=== PATIENT | female | born 1995 | race American Indian/Alaskan Native ===

== ENCOUNTER 2019-11-06 05:20 | Emergency (ER) | payer SELFPAY ==
[2019-11-06 05:32] VITALS: BP 145/88
[2019-11-06 05:50] LABS: Basophils % (Auto) 0.6 % (0.0-1.8); Eosinophils # (Auto) 0.1 K/mm3 (0.0-0.4); Eosinophils % (Auto) 1.3 % (0.0-4.3); Hematocrit 36.3 % (30.3-42.9); Hemoglobin 11.5 gm/dl (10.1-14.3); Lymphocytes # (Auto) 1.5 K/mm3 (1.2-5.4); Lymphocytes % (Auto) 26.7 % (13.4-35.0); Mean Corpuscular HGB Conc 32 % (30-34); Mean Corpuscular Volume 71 fl (79-97); Monocytes # (Auto) 0.2 K/mm3 (0.0-0.8); Monocytes % (Auto) 4.4 % (0.0-7.3); Platelet Count 327 K/mm3 (140-440); Red Blood Count 5.14 M/mm3 (3.65-5.03); Red Cell Distribution Width 15.4 % (13.2-15.2)
[2019-11-06] MEDS ORDERED: ACETAMINOPHEN 500 MG TAB PO ONE (05:50)
--- NOTE | 2019-11-06 05:53 | Emergency Department Report ---
<LAURAMARCELOEmelinaJOHNATHON - Last Filed: 11/06/19 06:54> ED Female HPI - General Chief complaint: Vaginal Bleeding Stated complaint: BLEEDING, 7 WEEKS Source: patient Mode of arrival: Ambulatory Limitations: No Limitations - History of Present Illness Initial comments: Patient is a A0 24-year-old white female who is approximately 7 weeks gestation and with no past medical history who presents to the ED with content of acute onset persistent suprapubic pain with vaginal bleeding for the last 2 hours. Patient also complains of urinary frequency and urgency. Patient states that she was asleep and woke up in paddle of blood with suprapubic pain. Patient denies nausea, vomiting, fever, chills, dysuria, low back pain, dizziness, headache, chest pain or shortness of breath or traumatic injury and heavy lifting. MD Complaint: vaginal bleeding, pelvic pain -: Sudden, hour(s) (2) Location: suprapubic, other (vaginal) Radiation: non-radiating Severity: moderate Severity scale (0 -10): 5 Quality: cramping, sharp Consistency: constant Improves with: none Worsens with: none Are you Now?: Yes (7 weeks gestation) Associated Symptoms: denies other symptoms, vaginal bleeding, abdominal pain (suprapubic), loss of appetite, hematuria. denies: vaginal discharge, nausea/vomiting, fever/chills, headaches, dysuria, rash, seizure, shortness of breath, syncope, weakness, other - Related Data Sexually active: Yes : 1 Para: 0 A: 0 Allergies Allergy/AdvReac Type Severity Reaction Status Date / Time No Known Allergies Allergy Unverified 11/06/19 05:32 ED Review of Systems Constitutional: denies: chills, fever Eyes: denies: eye pain, eye discharge, vision change ENT: denies: ear pain, throat pain Respiratory: denies: cough, shortness of breath, wheezing Cardiovascular: denies: chest pain, palpitations Endocrine: no symptoms reported Gastrointestinal: abdominal pain (suprapubic pain). denies: nausea, vomiting, diarrhea Genitourinary: urgency, frequency, abnormal menses (heavy vaginal bleeding). denies: dysuria, discharge Musculoskeletal: denies: back pain, joint swelling, arthralgia Skin: denies: rash, lesions Neurological: denies: headache, weakness, paresthesias Psychiatric: denies: anxiety, depression Hematological/Lymphatic: denies: easy bleeding, easy bruising ED Past Medical Hx - Past Medical History Previous Medical History?: No - Surgical History Past Surgical History?: No - Social History Smoking Status: Never Smoker Substance Use Type: None ED Physical Exam - General Limitations: No Limitations General appearance: alert, in no apparent distress - Head Head exam: Present: atraumatic, normocephalic, normal inspection - Eye Eye exam: Present: normal appearance, PERRL, EOMI Pupils: Present: normal accommodation - ENT ENT exam: Present: normal exam, normal orophraynx, mucous membranes moist, TM's normal bilaterally, normal external ear exam - Neck Neck exam: Present: normal inspection, full ROM. Absent: tenderness - Respiratory Respiratory exam: Present: normal lung sounds bilaterally. Absent: respiratory distress, wheezes, rales, chest wall tenderness, accessory muscle use, decreased breath sounds, prolonged expiratory - Cardiovascular Cardiovascular Exam: Present: regular rate, normal rhythm, normal heart sounds. Absent: systolic murmur, diastolic murmur, rubs, gallop - GI/Abdominal GI/Abdominal exam: Present: soft, tenderness (moderate suprapubic tenderness, no guarding or rebound), normal bowel sounds. Absent: guarding, rebound, rigid, hypoactive bowel sounds, organomegaly - Bi-manual exam: Present: other (pelvic exam deferred) - Extremities Exam Extremities exam: Present: normal inspection, full ROM, normal capillary refill - Back Exam Back exam: Present: normal inspection, full ROM. Absent: tenderness, muscle spasm, paraspinal tenderness, vertebral tenderness - Neurological Exam Neurological exam: Present: alert, oriented X3, CN II-XII intact, normal gait, reflexes normal - Psychiatric Psychiatric exam: Present: normal affect, normal mood - Skin Skin exam: Present: warm, dry, intact, normal color. Absent: rash ED Medical Decision Making - Lab Data Result diagrams: 11/06/19 05:34 11/06/19 05:57 - Medical Decision Making This is a A0 24-year-old female who is approximately 7 weeks gestation who presented to the ED with acute onset persistent suprapubic pain with heavy vaginal bleeding for 2 hours. In the ED, patient is alert and oriented 3 and is not in distress. Patient was treated for pain with Tylenol, and labs including urinalysis were drawn. Transvaginal ultrasound was also ordered. Lab test results show hCG Quant of 17.78 and large amount of blood in the urinalysis. The rest of the lab test results are nonactionable. The transvaginal ultrasound report is pending. Patient care was transferred to Mando Rylan Jones ANGELIQUE at shift change at 0700 hrs. Ms. Jones child reviewed all the imaging report and disposition the patient appropriately - Differential Diagnosis Threatened miscarriage; Ectopic ; Subchorionic hemorrhage, UTI ED Disposition Clinical Impression: Threatened miscarriage in early , Complex cyst of right ovary Disposition: DC-01 TO HOME OR SELFCARE Is pt being admited?: No Does the pt Need Aspirin: No Condition: Stable Instructions: Threatened Miscarriage (ED), Abdominal Pain in (ED) Additional Instructions: Maintain a complete pelvic rest, with no heavy lifting or sexual activity,you need a repeat hCG Quant in 2 days. Your hCG Quant today is 17.78. Please follow-up with a SAP DIRECTOR in the next 2 days. Please take the ultrasound report with you to the SAP DIRECTOR to discuss the complex cyst/mass and to have repeat of your hcg Quant. Return to the emergency room immediately for any new or worsening symptoms. Referrals: your, traffic inspector [Other] - 2-3 Days Time of Disposition: 06:28 Print Language: TURKMEN <RYLAN JONES - Last Filed: 11/06/19 08:14> ED Review of Systems ROS: Stated complaint: BLEEDING, 7 WEEKS Other details as noted in HPI ED Course Vital Signs 11/06/19 11/06/19 05:25 06:16 Temperature 98.4 F Pulse Rate 80 Respiratory 16 18 Rate Blood Pressure 145/88 O2 Sat by Pulse 100 Oximetry ED Medical Decision Making - Lab Data Result diagrams: 11/06/19 05:34 11/06/19 05:57 Lab Results 11/06/19 11/06/19 11/06/19 Range/Units 05:34 05:34 05:34 WBC 5.7 (4.5-11.0) K/mm3 RBC 5.14 H (3.65-5.03) M/mm3 Hgb 11.5 (10.1-14.3) gm/dl Hct 36.3 (30.3-42.9) % MCV 71 L (79-97) fl MCH 22 L (28-32) pg MCHC 32 (30-34) % RDW 15.4 H (13.2-15.2) % Plt Count 327 (140-440) K/mm3 Lymph % (Auto) 26.7 (13.4-35.0) % Bailey % (Auto) 4.4 (0.0-7.3) % Eos % (Auto) 1.3 (0.0-4.3) % Baso % (Auto) 0.6 (0.0-1.8) % Lymph # 1.5 (1.2-5.4) K/mm3 Bailey # 0.2 (0.0-0.8) K/mm3 Eos # 0.1 (0.0-0.4) K/mm3 Baso # 0.0 (0.0-0.1) K/mm3 Seg Neutrophils % 67.0 (40.0-70.0) % Seg Neutrophils # 3.8 (1.8-7.7) K/mm3 Sodium (137-145) mmol/L Potassium (3.6-5.0) mmol/L Chloride (98-107) mmol/L Carbon Dioxide (22-30) mmol/L Anion Gap mmol/L BUN (7-17) mg/dL Creatinine (0.7-1.2) mg/dL Estimated GFR ml/min BUN/Creatinine Ratio % Glucose (65-100) mg/dL Calcium (8.4-10.2) mg/dL Total Bilirubin (0.1-1.2) mg/dL AST (5-40) units/L ALT (7-56) units/L Alkaline Phosphatase (35-129) units/L Total Protein (6.3-8.2) g/dL Albumin (3.9-5) g/dL Albumin/Globulin Ratio % HCG, Quant 17.78 H (0-4) mIU/mL Urine Color (Yellow) Urine Turbidity (Clear) Urine pH (5.0-7.0) Ur Specific [place] (1.003-1.030) Urine Protein (Negative) mg/dL Urine Glucose (UA) (Negative) mg/dL Urine Ketones (Negative) mg/dL Urine Blood (Negative) Urine Nitrite (Negative) Urine Bilirubin (Negative) Urine Urobilinogen (<2.0) mg/dL Ur Leukocyte Esterase (Negative) Urine WBC (Auto) (0.0-6.0) /HPF Urine RBC (Auto) (0.0-6.0) /HPF U Epithel Cells (Auto) (0-13.0) /HPF Urine Mucus /HPF Blood Type O POSITIVE 11/06/19 11/06/19 Range/Units 05:57 Unknown WBC (4.5-11.0) K/mm3 RBC (3.65-5.03) M/mm3 Hgb (10.1-14.3) gm/dl Hct (30.3-42.9) % MCV (79-97) fl MCH (28-32) pg MCHC (30-34) % RDW (13.2-15.2) % Plt Count (140-440) K/mm3 Lymph % (Auto) (13.4-35.0) % Bailey % (Auto) (0.0-7.3) % Eos % (Auto) (0.0-4.3) % Baso % (Auto) (0.0-1.8) % Lymph # (1.2-5.4) K/mm3 Bailey # (0.0-0.8) K/mm3 Eos # (0.0-0.4) K/mm3 Baso # (0.0-0.1) K/mm3 Seg Neutrophils % (40.0-70.0) % Seg Neutrophils # (1.8-7.7) K/mm3 Sodium 138 (137-145) mmol/L Potassium 4.7 (3.6-5.0) mmol/L Chloride 105.6 (98-107) mmol/L Carbon Dioxide 20 L (22-30) mmol/L Anion Gap 17 mmol/L BUN 10 (7-17) mg/dL Creatinine 0.7 (0.7-1.2) mg/dL Estimated GFR > 60 ml/min BUN/Creatinine Ratio 14 % Glucose 92 (65-100) mg/dL Calcium 9.3 (8.4-10.2) mg/dL Total Bilirubin 0.20 (0.1-1.2) mg/dL AST 11 (5-40) units/L ALT 10 (7-56) units/L Alkaline Phosphatase 55 (35-129) units/L Total Protein 6.7 (6.3-8.2) g/dL Albumin 4.4 (3.9-5) g/dL Albumin/Globulin Ratio 1.9 % HCG, Quant (0-4) mIU/mL Urine Color Yellow (Yellow) Urine Turbidity Slightly-cloudy (Clear) Urine pH 6.0 (5.0-7.0) Ur Specific [place] 1.014 (1.003-1.030) Urine Protein 30 mg/dl (Negative) mg/dL Urine Glucose (UA) Neg (Negative) mg/dL Urine Ketones Neg (Negative) mg/dL Urine Blood Lg (Negative) Urine Nitrite Neg (Negative) Urine Bilirubin Neg (Negative) Urine Urobilinogen < 2.0 (<2.0) mg/dL Ur Leukocyte Esterase Tr (Negative) Urine WBC (Auto) 1.0 (0.0-6.0) /HPF Urine RBC (Auto) > 182.0 (0.0-6.0) /HPF U Epithel Cells (Auto) 1.0 (0-13.0) /HPF Urine Mucus 1+ /HPF Blood Type - Radiology Data Radiology results: report reviewed EXAMINATION: Obstetrical Ultrasound, 11/06/2019 INDICATION: Pelvic pain and vaginal bleeding in early COMPARISON: None FINDINGS: Transabdominal and transvaginal imaging was performed. The uterus is normal in size measuring 9.0 x 3.5 x 4.4 cm. The endometrial complex is mildly thickened to a maximum caliber of 1.5 cm. No intrauterine is visualized. There is a well-circumscribed hypoechoic mass or masslike area associated with the right adnexa measuring 1.6 cm. This demonstrates posterior through transmission. There is a 1.4 cm cyst associated with the left adnexal region. Doppler flow is demonstrated to both adnexal regions. There is a trace amount of pelvic free fluid. IMPRESSION: 1. No intrauterine is visualized. Findings include failed or failing , too early to visualize or less likely ectopic . Close clinical and laboratory follow-up is recommended. 2. Well-circumscribed hypoechoic mass or masslike area associated with the right adnexa demonstrating posterior through transmission. This is favored to represent a complicated cyst, although it would be difficult to fully exclude the possibility of a solid mass. Therefore, close clinical and sonographic follow-up is recommended. Signer Name: Haley Morgan MD Signed: 11/06/2019 7:33 AM Workstation Name: [id number] Transcribed By: EB Dictated By: Haley Morgan MD Electronically Authenticated By: Haley Morgan MD Signed Date/Time: 11/06/19732 DD/ 7 TD/TT: - Medical Decision Making US OB: 1. No intrauterine is visualized. Findings include failed or failing , too early to visualize or less likely ectopic . Close clinical and laboratory follow-up is recommended. 2. Well-circumscribed hypoechoic mass or masslike area associated with the right adnexa demonstrating posterior through transmission. This is favored to represent a complicated cyst, although it would be difficult to fully exclude the possibility of a solid mass. Therefore, close clinical and sonographic follow-up is recommended. discussed US results with pt and pt given US report to take to her SAP DIRECTOR. pt is Rh positive. Advised patient that she would need a repeat hCG Quant in 2 days. Your hCG Quant today is 17.78. Please follow-up with a SAP DIRECTOR in the next 2 days. Please take the ultrasound report with you to the SAP DIRECTOR to discuss the complex cyst and to have repeat of your hcg Quant. Return to the emergency room immediately for any new or worsening symptoms. Critical care attestation.: If time is entered above; I have spent that time in minutes in the direct care of this critically ill patient, excluding procedure time. ED Disposition Is pt being admited?: No Does the pt Need Aspirin: No Time of Disposition: 08:13
[2019-11-06 06:25] LABS: Bilirubin,Urine NEG (Negative); Blood,Urine LG (Negative); Color,Urine Yellow (Yellow); Mucus,Urine 1+ /HPF; Urobilinogen,Urine < 2.0 mg/dL (<2.0)
[2019-11-06 06:26] LABS: RBC,Urine > 182.0 /HPF (0.0-6.0)
[2019-11-06 06:42] LABS: Alanine Aminotransferase 10 units/L (7-56); Albumin 4.4 g/dL (3.9-5); BUN/Creatinine Ratio 14; Blood Urea Nitrogen 10 mg/dL (7-17); Calcium 9.3 mg/dL (8.4-10.2); Hemolysis Index 5
--- NOTE | 2019-11-06 07:38 | Ultrasound Report ---
EXAMINATION: Obstetrical Ultrasound, 11/06/2019 INDICATION: Pelvic pain and vaginal bleeding in early COMPARISON: None FINDINGS: Transabdominal and transvaginal imaging was performed. The uterus is normal in size measuring 9.0 x 3.5 x 4.4 cm. The endometrial complex is mildly thickene d to a maximum caliber of 1.5 cm. No intrauterine is visualized. There is a well-circumscribed hypoechoic mass or masslike area associated with the right adnexa measu ring 1.6 cm. This demonstrates posterior through transmission. There is a 1.4 cm cyst associated with the left adnexal region. Doppler flow is demonstrated to both adnexal regions. There is a trace amou nt of pelvic free fluid. IMPRESSION: 1. No intrauterine is visualized. Findings include failed or failing , too early to visualize or less likely ectopic . Close clinical and laboratory follow-up is r ecommended. 2. Well-circumscribed hypoechoic mass or masslike area associated with the right adnexa demonstrating posterior through transmission. This is favored to represent a complicated cyst, although it would b e difficult to fully exclude the possibility of a solid mass. Therefore, close clinical and sonograph ic follow-up is recommended. Signer Name: Haley Morgan MD Signed: 11/06/2019 7:33 AM Workstation Name: [id number]
== END 2019-11-06 08:29 | disposition home or self-care (01) ==
LOC: ED 05:20
DX: O20.0 Threatened abortion (principal); N83.291 Other ovarian cyst, right side
CPT/HCPCS: 36415; 76801; 76817; 80053; 81001; 84702; 85025; 86900; 86901

== ENCOUNTER 2020-04-05 13:00 | Outpatient (CLI) | payer BC | END 2020-04-05 13:01 | disposition home or self-care (01) | LOC: LAB 13:00 | PROVIDERS: ATTEND Nurse Practitioner Women's Health | DX: Z34.02 Encounter for supervision of normal first pregnancy, second trimester (principal); Z3A.11 11 weeks gestation of pregnancy | CPT/HCPCS: 36415; 86689; 86803; 87086 ==

== ENCOUNTER 2020-07-06 11:07 | Outpatient (CLI) | payer BC ==
[2020-07-08 06:46] LABS: Hematocrit 31.7 % (30.3-42.9); Hemoglobin 10.2 gm/dl (10.1-14.3)
== END 2020-07-08 23:59 | disposition home or self-care (01) ==
LOC: LAB 11:07
PROVIDERS: ATTEND Obstetrics & Gynecology
DX: Z34.82 Encounter for supervision of other normal pregnancy, second trimester (principal); Z3A.24 24 weeks gestation of pregnancy
CPT/HCPCS: 36415; 85014; 85018

== ENCOUNTER 2020-09-18 12:08 | Outpatient (CLI) | payer BC | END 2020-09-18 12:09 | disposition home or self-care (01) | LOC: LAB 12:08 | PROVIDERS: ATTEND Obstetrics & Gynecology | DX: Z34.03 Encounter for supervision of normal first pregnancy, third trimester (principal); Z3A.35 35 weeks gestation of pregnancy | CPT/HCPCS: 36415; 86592; 86689 ==

== ENCOUNTER 2020-10-30 14:37 | Inpatient (IN) | payer BC ==
[2020-10-30] MEDS ORDERED: SODIUM CHLORIDE NASAL SPRAY 44ML NS PRN (14:41)
[2020-10-30] MEDS ORDERED: ONDANSETRON 4 MG/2 ML INJ IV PRN (14:41)
[2020-10-30] MEDS ORDERED: CALCIUM GLUCONATE 1000 MG/10 ML INJ IV ONE (14:41)
[2020-10-30] MEDS ORDERED: ACETAMINOPHEN 325 MG TAB PO PRN (14:41)
[2020-10-30] MEDS ORDERED: SIMETHICONE 80 MG CHEW TAB PO PRN (14:41)
--- NOTE | 2020-10-30 14:50 | History and Physical Report ---
History of Present Illness Date of examination: 10/30/20 (pt admitted with PP PreE and HINOJOSA) Chief complaint: elevated BP @ home and HINOJOSA unresolved with Tylenol History of present illness: Phone Note Call from Patient Caller: Patient Action Taken: Message sent to Provider Summary of Call: Late Entry- Patient is calling with c/o elevated BP's of 161/92 and 171/92. Reports she has not take her Labetalol today because it is not ready at the pharmacy. While on the phone pt walked in with the medication. Pt c/o a headache, denies dizziness, blurred vision, spots or epigastric pain. Instructed patient to take Labetalol and retake BP in 1 hour and call back with reading. She agrees with POC and voiced understanding. ...................................................................Halie Cifuentes October 30, 2020 1:53 PM Called patient to check on her. Still c/o headache, She is retaking BP now. BP is 164/92. What would you like me to tell her? ...................................................................Halie Cifuentes October 30, 2020 2:05 PM Follow-up for Phone Call Follow-up Details: she needs to go to the ED now Spoke with pt Instructed to go to L&D for direct admit. Consulted with Dr Harvey. Bed Control called ...................................................................Rosa Elena Ohara CNM October 30, 2020 2:37 PM Delivery Date: 10/26/2020 Gestational Age: 40 weeks Anesthesia: epidural Delivery Type: Weight: 7.31 lbs Gender: female Location: [facility] Complications: failure to descend, NRFHTs Pt received 24hr of MGSO4 10/26/20 - 10/27/20 for elevated BPs noted during and before section. Was d/c home on Labetalol 200mg po BID Past History - Obstetrical History : 2 Medications and Allergies Allergies Allergy/AdvReac Type Severity Reaction Status Date / Time No Known Allergies Allergy Verified 10/26/20 00:50 Home Medications Medication Instructions Recorded Confirmed Last Taken Type Docusate Sodium [Colace] 100 mg PO BID PRN #30 capsule 10/26/20 Unknown Rx Ferrous Sulfate [Feosol 325 MG tab] 325 mg PO BID #90 tablet 10/26/20 Unknown Rx Ibuprofen [Motrin 800 MG tab] 800 mg PO TID PRN #30 tablet 10/26/20 Unknown Rx Vit-Fe Fumar-FA [ 1 tab PO DAILY 10/26/20 10/26/20 1 Day Ago H istory Vitamin] ~10/25/20 oxyCODONE /ACETAMINOPHEN [Percocet 1 - 2 tab PO Q4HR PRN #20 tablet 10/26/20 Unknown Rx 5/325 mg] labetaloL [Labetalol 200mg TAB] 200 mg PO BID #90 tablet 10/29/20 Unknown Rx Review of Systems All systems: negative Constitutional: malaise, chronic headaches - Physical Exam Breasts: Positive: normal, Cardiovascular: Regular rate, Normal S1, Normal S2 Lungs: Positive: Clear to auscultation Abdomen: Positive: normal appearance, soft, normal bowel sounds, other (c/s wound w/o redness or swelling). Negative: distention, tenderness Genitourinary (Female): Positive: normal external genitalia Vulva: both: normal Vagina: Positive: normal moisture. Negative: discharge Cervix: Negative: lesion, discharge Uterus: Positive: normal size, normal contour Adnexa: both: normal Anus/Rectum: Positive: normal perianal skin, heme negative. Negative: rectal mass, hemorrhoids Extremities: Deep Tendon Reflex Grade: Normal +2 Results All other labs normal. PreE evaluation labs ordered Assessment and Plan Spoke with Pedrito Penny Nurse NICU There are no CI to breast feeding. - Patient Problems (1) Pre-eclampsia, Onset Date: ~10/26/20 Current Visit: No Status: Acute Plan to address problem: Pt presents for direct admission with PP PreE elevated BPs at home and HINOJOSA unrelieved with Tylenol. All orders in EMR. Dr Harvey consulted
[2020-10-30] MEDS ORDERED: MAGNESIUM SULFATE 4 GM/100 ML BAG IV ONE (15:30)
[2020-10-30] MEDS ORDERED: MAGNESIUM SULFATE 40GM/1000ML 40 GM/1,000 ML BAG IV SCH (15:30)
[2020-10-30] MEDS: LACTATED RINGERS 1,000 ML IV SCH (16:55)
[2020-10-30 18:19] LABS: Hematocrit 22.6 % (30.3-42.9); Hemoglobin 7.3 gm/dl (10.1-14.3); Mean Corpuscular HGB Conc 32 % (30-34); Mean Corpuscular Volume 74 fl (79-97); Platelet Count 374 K/mm3 (140-440); Red Blood Count 3.07 M/mm3 (3.65-5.03)
[2020-10-30 18:23] LABS: Red Cell Distribution Width 20.1 % (13.2-15.2)
[2020-10-30 18:41] LABS: Alanine Aminotransferase 46 units/L (7-56); Uric Acid 4.6 mg/dL (3.5-7.6)
[2020-10-30 18:48] LABS: Bilirubin,Urine NEG (Negative); Blood,Urine NEG (Negative); Color,Urine Colorless (Yellow); Mucus,Urine FEW /HPF; Protein,Urine <15 mg/dL mg/dL (Negative); Urobilinogen,Urine < 2.0 mg/dL (<2.0); WBC,Urine < 1.0 /HPF (0.0-6.0)
[2020-10-31] MEDS: LACTATED RINGERS 1,000 ML IV SCH (06:33)
--- NOTE | 2020-10-31 07:50 | Progress Note ---
Assessment and Plan Patient resting, baby to breast. reports HINOJOSA this AM resolved with dose of tylenol. no current symptoms. b/p 140-160's/70's-80's, urine output good. reviewed plan of care, all questions addressed. - Patient Problems (1) delivery delivered Onset Date: ~10/26/20 Current Visit: No Status: Acute (2) Pre-eclampsia, Onset Date: ~10/26/20 Current Visit: No Status: Acute Plan to address problem: Complete mag sulfate x24 Mag level q6hrs Continue labetalol 200mg (3) Anemia Current Visit: No Status: Acute Qualifiers: Other causes of anemia: acute posthemorrhagic Plan to address problem: FE supplementation Subjective - Subjective Date of service: 10/31/20 Principal diagnosis: postop day #5, pre-e readmit Patient reports: appetite normal, pain well controlled, flatus, no nauseated Objective - Vital Signs Latest vital signs: Vital Signs Temp Pulse Resp BP BP Pulse Ox 10/31/20 07:42 95 H 99 10/31/20 07:37 93 H 99 10/31/20 07:32 99 H 99 10/31/20 07:27 99 H 99 10/31/20 07:25 97.9 F 15 10/31/20 07:22 96 H 99 10/31/20 07:18 100 H 150/82 10/31/20 07:17 96 H 98 10/31/20 07:12 98 H 99 10/31/20 07:07 103 H 98 10/31/20 07:02 107 H 98 10/31/20 06:57 107 H 96 10/31/20 06:56 105 H 94 10/31/20 06:52 96 H 98 10/31/20 06:50 18 10/31/20 06:47 96 H 98 10/31/20 06:42 99 H 99 10/31/20 06:37 97 H 98 10/31/20 06:35 98.4 F 10/31/20 06:32 99 H 98 10/31/20 06:27 99 H 98 10/31/20 06:22 98 H 97 10/31/20 06:18 99 H 147/85 10/31/20 06:17 93 H 97 10/31/20 06:12 92 H 98 10/31/20 06:07 95 H 98 10/31/20 06:02 87 98 10/31/20 05:57 94 H 99 10/31/20 05:52 86 99 10/31/20 05:47 94 H 99 10/31/20 05:42 94 H 98 10/31/20 05:37 89 99 10/31/20 05:32 93 H 100 10/31/20 05:27 91 H 97 10/31/20 05:22 91 H 97 10/31/20 05:18 90 145/79 94 10/31/20 05:17 93 H 97 10/31/20 05:12 90 98 10/31/20 05:07 89 97 10/31/20 05:01 91 H 98 10/31/20 04:57 89 98 10/31/20 04:52 87 99 10/31/20 04:47 87 99 10/31/20 04:42 91 H 98 10/31/20 04:37 90 99 10/31/20 04:32 89 99 10/31/20 04:27 90 99 10/31/20 04:22 88 99 10/31/20 04:18 89 150/80 10/31/20 04:17 91 H 98 10/31/20 04:12 92 H 98 10/31/20 04:07 87 99 10/31/20 04:02 87 100 10/31/20 03:57 95 H 100 10/31/20 03:52 87 100 10/31/20 03:47 84 100 10/31/20 03:42 88 100 10/31/20 03:37 83 99 10/31/20 03:32 98 H 98 10/31/20 03:27 94 H 98 10/31/20 03:23 101 H 94 10/31/20 03:22 99 H 99 10/31/20 03:18 86 163/83 10/31/20 03:17 86 98 10/31/20 03:12 88 97 10/31/20 03:07 86 98 10/31/20 03:02 101 H 99 10/31/20 02:57 91 H 99 10/31/20 02:52 93 H 99 10/31/20 02:47 96 H 99 10/31/20 02:42 97 H 98 10/31/20 02:37 102 H 99 10/31/20 02:32 95 H 99 10/31/20 02:26 98 H 98 10/31/20 02:25 99 H 91 10/31/20 02:22 92 H 99 10/31/20 02:18 93 H 155/88 10/31/20 02:17 95 H 99 10/31/20 02:12 92 H 99 10/31/20 02:07 91 H 99 10/31/20 02:02 104 H 97 10/31/20 01:57 93 H 98 10/31/20 01:52 95 H 99 10/31/20 01:47 87 99 10/31/20 01:42 100 H 99 10/31/20 01:38 114 H 93 10/31/20 01:36 106 H 100 10/31/20 01:32 95 H 98 10/31/20 01:26 89 98 10/31/20 01:22 91 H 98 10/31/20 01:18 96 H 164/83 10/31/20 01:17 88 98 10/31/20 01:12 85 98 10/31/20 01:07 90 98 10/31/20 01:01 85 98 10/31/20 00:57 89 98 10/31/20 00:52 87 99 10/31/20 00:47 88 99 10/31/20 00:42 92 H 99 10/31/20 00:37 88 99 10/31/20 00:32 86 99 10/31/20 00:27 97 H 100 10/31/20 00:22 96 H 99 10/31/20 00:17 106 H 150/79 89 10/31/20 00:16 92 H 90 10/31/20 00:12 95 H 99 10/31/20 00:07 82 99 10/31/20 00:02 93 H 99 10/31/20 00:01 91 H 156/88 10/30/20 23:57 85 99 10/30/20 23:52 83 99 10/30/20 23:47 94 H 99 10/30/20 23:46 90 181/84 10/30/20 23:42 85 99 10/30/20 23:37 84 100 10/30/20 23:32 91 H 99 10/30/20 23:31 96 H 150/86 10/30/20 23:27 83 99 10/30/20 23:22 83 99 10/30/20 23:17 85 99 10/30/20 23:16 90 176/88 10/30/20 23:12 88 99 10/30/20 23:07 87 100 10/30/20 23:02 83 99 10/30/20 23:01 82 143/74 10/30/20 22:57 83 98 10/30/20 22:52 84 99 10/30/20 22:47 82 99 10/30/20 22:46 81 145/75 10/30/20 22:42 82 99 10/30/20 22:37 87 99 10/30/20 22:32 84 100 10/30/20 22:31 85 146/83 10/30/20 22:27 87 99 10/30/20 22:22 98 H 100 10/30/20 22:17 89 99 10/30/20 22:16 83 141/77 10/30/20 22:12 89 99 10/30/20 22:07 85 99 10/30/20 22:02 81 100 10/30/20 22:01 82 164/79 10/30/20 21:57 83 100 10/30/20 21:52 108 H 98 10/30/20 21:47 87 98 10/30/20 21:46 84 141/73 10/30/20 21:42 85 98 10/30/20 21:37 84 98 10/30/20 21:32 85 98 10/30/20 21:31 83 140/75 10/30/20 21:27 86 99 10/30/20 21:22 87 98 10/30/20 21:17 91 H 98 10/30/20 21:16 83 149/76 10/30/20 21:12 85 100 10/30/20 21:07 89 99 10/30/20 21:02 86 100 10/30/20 21:01 82 149/77 10/30/20 20:57 85 100 10/30/20 20:52 90 100 10/30/20 20:49 88 93 10/30/20 20:47 91 H 99 10/30/20 20:46 81 150/71 10/30/20 20:42 90 99 10/30/20 20:37 95 H 99 10/30/20 20:34 92 H 93 12/28/20 20:32 100 H 100 10/30/20 20:31 96 H 152/85 10/30/20 20:27 84 99 10/30/20 20:22 74 99 10/30/20 20:17 77 99 10/30/20 20:16 84 153/86 10/30/20 20:12 73 99 10/30/20 20:07 75 99 10/30/20 20:02 78 99 10/30/20 20:01 78 151/85 10/30/20 20:00 98.1 F 18 10/30/20 19:57 78 100 10/30/20 19:52 76 99 10/30/20 19:47 77 100 10/30/20 19:46 76 149/86 10/30/20 19:42 85 100 10/30/20 19:37 84 99 10/30/20 19:33 67 77 L 10/30/20 19:32 79 99 10/30/20 19:31 82 149/68 10/30/20 19:27 84 99 10/30/20 19:22 85 98 10/30/20 19:17 91 H 100 10/30/20 19:16 85 164/98 10/30/20 19:12 94 H 99 10/30/20 19:07 84 99 10/30/20 19:02 80 100 10/30/20 19:01 88 164/100 10/30/20 18:57 89 99 10/30/20 18:52 85 99 10/30/20 18:47 84 99 10/30/20 18:46 88 159/92 10/30/20 18:42 91 H 98 10/30/20 18:41 90 93 10/30/20 18:37 98 H 99 10/30/20 18:32 84 99 10/30/20 18:31 90 160/83 10/30/20 18:27 86 99 10/30/20 18:22 87 98 10/30/20 18:17 83 99 10/30/20 18:16 83 165/87 10/30/20 18:12 80 99 10/30/20 18:07 99 H 99 10/30/20 18:01 81 154/82 99 10/30/20 17:57 80 99 10/30/20 17:51 82 99 10/30/20 17:47 83 100 10/30/20 17:46 82 155/79 10/30/20 17:42 78 157/87 99 10/30/20 17:37 90 155/93 10/30/20 17:36 87 100 10/30/20 17:33 83 155/85 10/30/20 17:32 88 100 10/30/20 17:27 90 169/77 10/30/20 17:26 88 99 10/30/20 17:22 77 156/76 98 10/30/20 17:17 80 151/72 99 10/30/20 17:12 95 H 153/70 10/30/20 17:11 109 H 99 10/30/20 17:07 69 164/85 100 10/30/20 17:02 78 99 10/30/20 16:58 72 165/95 10/30/20 16:57 72 99 10/30/20 16:52 74 100 10/30/20 16:47 85 99 10/30/20 16:43 77 166/94 10/30/20 16:42 83 99 10/30/20 16:37 77 99 10/30/20 16:32 76 99 10/30/20 16:28 82 167/81 10/30/20 16:27 77 99 10/30/20 16:21 96 H 99 10/30/20 16:17 98.3 F 78 18 181/91 99 10/30/20 16:16 196 H 94 10/30/20 16:13 78 181/91 Intake and Output 10/30/20 10/30/20 10/31/20 15:59 23:59 07:59 Intake Total 2.083 997.917 Output Total 1250 3100 Balance -1247.917 -2102.083 Intake: IV 2.083 997.917 Lactated Ringers 1,000 ml 2.083 997.917 @ 125 mls/hr IV DIRECT [facility] Rx#:[id number] Output: Urine 1250 3100 Indwelling Catheter 1250 3100 Other: Total, Output Amount 400 200 Weight 94.347 kg - Exam Breasts: Present: normal Cardiovascular: Present: Regular rate Lungs: Present: Clear to auscultation, Normal air movement Abdomen: Present: normal appearance, soft Vulva: both: normal Uterus: Present: normal, firm, fundal height below umbilicus Incision: Present: normal, dry, intact - Labs Labs: Abnormal lab results 10/30/20 10/30/20 10/30/20 Range/Units 16:50 16:50 21:01 RBC 3.07 L (3.65-5.03) M/mm3 Hgb 7.3 L (10.1-14.3) gm/dl Hct 22.6 L (30.3-42.9) % MCV 74 L (79-97) fl MCH 24 L (28-32) pg RDW 20.1 H (13.2-15.2) % Magnesium 4.60 H (1.7-2.3) mg/dL Lactate Dehydrogenase 300 H (91-180) units/L 10/31/20 Range/Units 03:03 RBC (3.65-5.03) M/mm3 Hgb (10.1-14.3) gm/dl Hct (30.3-42.9) % MCV (79-97) fl MCH (28-32) pg RDW (13.2-15.2) % Magnesium 6.10 H (1.7-2.3) mg/dL Lactate Dehydrogenase (91-180) units/L
[2020-10-31] MEDS: FERROUS SULFATE 325 MG TAB PO SCH ×2 (09:33→21:21)
[2020-10-31] MEDS: PRENATAL VIT27-FE FUMARATE-FOLIC ACID VIT TAB PO SCH (09:33)
[2020-10-31] MEDS ORDERED: hydrALAZINE 20 MG/1 ML INJ IV PRN (10:08)
[2020-10-31] MEDS: ACETAMINOPHEN 500 MG TAB PO PRN ×2 (12:40→20:35)
[2020-10-31] MEDS: DOCUSATE SODIUM 100 MG CAP PO PRN (20:40)
--- NOTE | 2020-11-01 08:13 | Progress Note ---
Assessment and Plan A: 25 y.o. s/p , POD # 6. re-admit for pre eclampsia. - Patient Problems (1) Pre-eclampsia, Onset Date: ~10/26/20 Current Visit: No Status: Acute Plan to address problem: Increase Labetalol to 300mg BID. Continue to monitor blood pressures. Continue to monitor for worsening s/sx of pre eclampsia. Subjective - Subjective Date of service: 11/01/20 (Pt doing well) Principal diagnosis: postop day #6, pre-e readmit, pre eclampsia, s/p mag infusion Patient reports: appetite normal, voiding normally, pain well controlled, flatus, ambulating normally : doing well Objective - Vital Signs Latest vital signs: Vital Signs Temp Pulse Resp BP BP Pulse Ox 11/01/20 04:27 98.9 F 89 20 153/87 96 11/01/20 00:27 98.1 F 80 20 137/79 99 10/31/20 21:35 18 10/31/20 21:21 89 143/82 10/31/20 21:00 89 143/82 10/31/20 20:35 18 10/31/20 20:31 98.2 F 89 20 143/82 96 10/31/20 17:25 98.4 F 83 18 159/83 100 10/31/20 16:52 87 99 10/31/20 16:47 90 99 10/31/20 16:42 84 97 10/31/20 16:37 82 97 10/31/20 16:32 84 97 10/31/20 16:27 83 97 10/31/20 16:22 83 97 10/31/20 16:18 81 138/72 10/31/20 16:17 83 97 10/31/20 16:12 84 97 10/31/20 16:07 81 97 10/31/20 16:02 80 99 10/31/20 15:57 86 99 10/31/20 15:52 79 98 10/31/20 15:47 77 99 10/31/20 15:42 89 98 10/31/20 15:37 85 99 10/31/20 15:32 85 97 10/31/20 15:27 92 H 98 10/31/20 15:22 81 98 10/31/20 15:18 88 153/76 10/31/20 15:17 89 98 10/31/20 15:12 86 98 10/31/20 15:07 91 H 98 10/31/20 15:02 90 97 10/31/20 15:00 98.2 F 16 10/31/20 14:57 87 97 10/31/20 14:52 95 H 97 10/31/20 14:47 96 H 98 10/31/20 14:42 94 H 98 10/31/20 14:37 87 98 10/31/20 14:32 96 H 98 10/31/20 14:27 101 H 94 10/31/20 14:22 92 H 98 10/31/20 14:18 89 147/82 94 10/31/20 14:17 88 98 10/31/20 14:12 85 98 10/31/20 14:07 89 98 10/31/20 14:02 93 H 98 10/31/20 13:57 89 97 10/31/20 13:52 83 98 10/31/20 13:47 94 H 97 10/31/20 13:42 88 97 10/31/20 13:37 89 97 10/31/20 13:32 86 97 10/31/20 13:27 85 97 10/31/20 13:22 82 97 10/31/20 13:18 88 136/80 10/31/20 13:17 91 H 98 10/31/20 13:12 84 98 10/31/20 13:07 84 98 10/31/20 13:02 83 98 10/31/20 12:57 85 97 10/31/20 12:52 84 98 10/31/20 12:47 86 98 10/31/20 12:42 88 98 10/31/20 12:37 88 97 10/31/20 12:32 87 97 10/31/20 12:27 96 H 98 10/31/20 12:22 89 97 10/31/20 12:18 88 135/81 10/31/20 12:17 95 H 99 10/31/20 12:12 87 100 10/31/20 12:07 98 H 100 10/31/20 12:02 92 H 99 10/31/20 11:57 85 99 10/31/20 11:52 92 H 99 10/31/20 11:47 86 99 10/31/20 11:42 86 99 10/31/20 11:37 90 100 10/31/20 11:32 90 99 10/31/20 11:27 92 H 99 10/31/20 11:22 86 94 10/31/20 11:18 87 129/73 10/31/20 11:17 87 99 10/31/20 11:12 86 99 10/31/20 11:07 89 98 10/31/20 11:02 91 H 98 10/31/20 11:00 97.9 F 16 10/31/20 10:57 89 99 10/31/20 10:53 92 H 94 10/31/20 10:52 89 99 10/31/20 10:47 89 98 10/31/20 10:42 96 H 99 10/31/20 10:37 92 H 98 10/31/20 10:32 95 H 97 10/31/20 10:27 92 H 98 10/31/20 10:22 94 H 98 10/31/20 10:18 92 H 138/68 10/31/20 10:16 92 H 99 10/31/20 10:15 90 139/73 10/31/20 10:11 95 H 99 10/31/20 10:07 89 98 10/31/20 10:02 97 H 98 10/31/20 09:57 91 H 98 10/31/20 09:52 106 H 99 10/31/20 09:47 46 L 97 10/31/20 09:42 98 H 99 10/31/20 09:37 94 H 100 10/31/20 09:33 115 H 168/88 10/31/20 09:32 72 86 10/31/20 09:31 75 86 10/31/20 09:27 97 H 99 10/31/20 09:22 99 H 99 10/31/20 09:18 99 H 168/88 10/31/20 09:17 104 H 99 10/31/20 09:12 108 H 98 10/31/20 09:07 107 H 98 10/31/20 09:02 102 H 98 10/31/20 08:57 102 H 98 10/31/20 08:53 108 H 84 10/31/20 08:52 94 H 98 10/31/20 08:47 93 H 98 10/31/20 08:42 92 H 99 10/31/20 08:37 96 H 157/88 97 10/31/20 08:34 100 H 92 10/31/20 08:32 98 H 99 10/31/20 08:27 100 H 99 10/31/20 08:22 92 H 98 10/31/20 08:18 100 H 180/91 10/31/20 08:17 101 H 98 10/31/20 08:12 97 H 98 Intake and Output 10/31/20 11/01/20 11/01/20 22:59 06:59 14:59 Intake Total 770 Output Total 700 200 Balance 70 -200 Intake: Oral 770 Output: Urine 700 200 Indwelling Catheter 300 Void 400 200 Other: Total, Intake Amount 200 Total, Output Amount 400 200 # Voids Void 1 2 - Exam Narrative Exam: Pt denies blurred vision, spots before her eyes, shortness of breath, chest pain, and upper abdominal pain. States that she had a HINOJOSA last night, received some Tylenol and it has now resolved. Blood pressure ranges have been 130's- 150's/80's, with the highest reading being 153/87. Consulted with Dr. Jaramillo, will increase Labetalol to 300mg BID. Made pt aware of plan of care for the day. Breasts: Present: deferred Cardiovascular: Present: Regular rate Lungs: Present: Normal air movement Abdomen: Present: normal appearance, soft Vulva: both: normal Uterus: Present: normal Extremities: Present: normal Deep Tendon Reflex Grade: Normal +2 Incision: Present: normal, dry, intact - Labs Labs: Abnormal lab results 10/31/20 10/31/20 Range/Units 08:39 15:26 Magnesium 6.90 H 5.90 H (1.7-2.3) mg/dL
[2020-11-01] MEDS: PRENATAL VIT27-FE FUMARATE-FOLIC ACID VIT TAB PO SCH (09:51)
[2020-11-01] MEDS: FERROUS SULFATE 325 MG TAB PO SCH ×2 (09:51→21:05)
[2020-11-01] MEDS: DOCUSATE SODIUM 100 MG CAP PO PRN ×2 (09:51→21:09)
--- NOTE | 2020-11-02 08:46 | Progress Note ---
Assessment and Plan Patient resting, baby to breast. reports tightness in left lower leg. no redness or warmth, no discordance in edema, neg yasmine's sign. Will get doppler studies to r/o DVT. b/p 130-170's/70's-90's on current regimen of Labetalol 300mg BID. Procardia added for today. Will continue to monitor blood pressure and consider d/c home this afternoon if b/p's stabilize. Pt desires d/c home today if able. - Patient Problems (1) delivery delivered Onset Date: ~10/26/20 Current Visit: No Status: Acute (2) Pre-eclampsia, Onset Date: ~10/26/20 Current Visit: No Status: Acute (3) Anemia Current Visit: No Status: Acute Qualifiers: Other causes of anemia: acute posthemorrhagic Plan to address problem: FE supplementation Subjective - Subjective Date of service: 11/02/20 Principal diagnosis: postop day #7, pre-e readmit, pre eclampsia, s/p mag infusion Patient reports: appetite normal, voiding normally, pain well controlled, ambulating normally, no dizzy ambulation, no nauseated Objective - Vital Signs Latest vital signs: Vital Signs Temp Pulse Resp BP BP Pulse Ox 11/02/20 07:30 98.3 F 73 17 165/90 11/02/20 05:25 98.2 F 73 18 158/85 97 11/01/20 23:00 98.3 F 77 18 157/85 98 11/01/20 21:06 81 156/87 11/01/20 16:05 98.6 F 81 18 156/87 100 11/01/20 12:35 98.4 F 79 18 153/88 Intake and Output 11/01/20 11/02/20 11/02/20 23:59 07:59 15:59 Intake Total 240 Balance 240 Intake: Oral 240 Other: Total, Intake Amount 240 # Voids Void 1 1 - Exam Breasts: Present: normal, Cardiovascular: Present: Regular rate Lungs: Present: Clear to auscultation, Normal air movement Abdomen: Present: normal appearance, soft Uterus: Present: normal, firm, fundal height below umbilicus Extremities: Present: normal Deep Tendon Reflex Grade: Normal +2 Incision: Present: normal, dry, intact - Labs Labs: neg yasmine's sign, trace edema BLE
[2020-11-02] MEDS ORDERED: NIFEdipine XL 30 MG TAB PO SCH (10:00)
[2020-11-02] MEDS: FERROUS SULFATE 325 MG TAB PO SCH (10:23)
[2020-11-02] MEDS: PRENATAL VIT27-FE FUMARATE-FOLIC ACID VIT TAB PO SCH (10:23)
[2020-11-02] MEDS: DOCUSATE SODIUM 100 MG CAP PO PRN (12:02)
[2020-11-02] MEDS: ACETAMINOPHEN 500 MG TAB PO PRN (12:02)
--- NOTE | 2020-11-02 12:21 | Vascular Lab Report ---
DUPLEX DOPPLER LOWER EXTREMITY VEINS, LEFT INDICATION / CLINICAL INFORMATION: left leg tightness. TECHNIQUE: Duplex doppler imaging was performed through the veins of the left lower extremity using venous compr ession and other maneuvers. COMPARISON: None available. FINDINGS: LEFT COMMON FEMORAL VEIN: Negative. LEFT FEMORAL VEIN: Negative. LEFT POPLITEAL VEIN: Negative. LEFT CALF VEINS: Negative. ADDITIONAL FINDINGS: None. IMPRESSION: 1. No sonographic evidence for DVT in the left lower extremity. Signer Name: Solitario Sanchez MD Signed: 11/02/2020 12:17 PM Workstation Name: [id number]
--- NOTE | 2020-11-02 14:46 | Discharge Summary ---
Providers - Providers Date of Admission: 10/30/20 15:23 Date of discharge: 11/02/20 (desires c/d home today) Attending physician: JONI GRAJEDA Primary care physician: EDMUNDO FAYE Hospitalization Reason for admission: other ( pre-e) Procedure: other (mag sulfate therapy and antihypertension medication) Discharge diagnosis: other ( blood pressure management, pre-e) Condition at discharge: Good Disposition: DC-01 TO HOME OR SELFCARE - Discharge Diagnoses (1) delivery delivered Status: Acute (2) Pre-eclampsia, Status: Acute (3) Anemia Status: Acute Qualifiers: Other causes of anemia: acute posthemorrhagic Plan - Discharge Medications Prescriptions: Labetalol HCl [Labetalol 300mg TAB] 300 mg PO BID #60 tablet NIFEdipine [Procardia Xl] 30 mg PO QDAY #30 tab.er.24 - Provider Discharge Summary Activity: routine, no sex for 6 weeks, no heavy lifting 4 weeks, no strenuous exercise Diet: routine Instructions: routine Additional instructions: [] Smoking cessation referral if applicable(refer to patient education folder for contact #) [] Refer to [facility] Call your doctor immediately for: * Fever > 100.5 * Heavy vaginal bleeding ( >1 pad per hour) * Severe persistent headache * Shortness of breath * Reddened, hot, painful area to leg or breast * Drainage or odor from incision. * Keep incision clean and dry at all times and follow doctor's instructions regarding bathing/showering - Follow up plan Follow up: EDMUNDO FAYE MD [Primary Care Provider] - 7 Days (Please check your blood pressure 1 hour after taking blood pressure medication, twice a day. If blood pressure is greater than 160/90, please call [phone] to speak to a provider. Please call for any complaints of headache not relieved by tylenol, visual changes or upper abdominal pain. )
[2020-11-02 16:08] VITALS: BP 149/90
== END 2020-11-02 16:57 | disposition home or self-care (01) | DRG 776 ==
LOC: 3A 14:37 → UNDOADMIN 14:37 → LD 15:23 → OB 10-31 17:15
PROVIDERS: ADMIT Obstetrics & Gynecology; ATTEND Obstetrics & Gynecology
DX: O14.95 Unspecified pre-eclampsia, complicating the puerperium (principal); D62 Acute posthemorrhagic anemia; Z79.899 Other long term (current) drug therapy
CPT/HCPCS: 36415; 81001; 82565; 83615; 83735; 84450; 84460; 84550; 85027; G0378; J3475; J7120